=== PATIENT | male | born 1985 | race Caucasian/White ===

== ENCOUNTER 2022-11-02 16:35 | Inpatient (IN) | payer OTHER ==
[~2022-11-02] VITALS: Ht 177.8 cm; Wt 92.0 kg
[2022-11-02] MEDS ORDERED: HYDROmorphone 2 MG TAB PO PRN (17:50)
[2022-11-02] MEDS ORDERED: ACETAMINOPHEN TAB 650MG DOSE (2X325MG) PO PRN (17:50)
[2022-11-02] MEDS ORDERED: diphenhydrAMINE 50MG/ML VIAL IV PRN (17:50)
[2022-11-02] MEDS ORDERED: zolPIDEM TARTRATE 5 MG TAB PO PRN (17:50)
[2022-11-02] MEDS ORDERED: ONDANSETRON 4MG 2ML VIAL IV PRN ×2 (17:50→20:30)
[2022-11-02] MEDS ORDERED: ceFAZolin SOD 2 GM in IV 1 EA IV ONE (17:55)
[2022-11-02 18:22] VITALS: BP 122/82
[2022-11-02] MEDS ORDERED: propofoL 200 MG/20 ML VIAL As Ordered ONE (18:42)
[2022-11-02] MEDS ORDERED: LIDOCAINE 2% 100MG/5ML SDV (FOR ANES.) As Ordered ONE (18:42)
[2022-11-02] MEDS ORDERED: MIDAZOLAM INJ 2MG/2ML VIAL (J2250 PER 1MG) As Ordered ONE (18:43)
[2022-11-02] MEDS ORDERED: fentaNYL 100 MCG/2 ML INJECTION As Ordered ONE (18:43)
[2022-11-02] MEDS ORDERED: ceFAZolin 1GM VIAL As Ordered ONE (18:52)
[2022-11-02] MEDS ORDERED: BUPIVACAINE HCL 0.5% 30ML VIAL As Ordered ONE (18:53)
[2022-11-02] MEDS ORDERED: ceFAZolin 2 GM/D5W 50 ML IV BAG As Ordered ONE (19:13)
[2022-11-02] MEDS ORDERED: ONDANSETRON 4MG 2ML VIAL As Ordered ONE (19:16)
[2022-11-02] MEDS ORDERED: ACETAMINOPHEN 1000MG 100ML IV BAG As Ordered ONE (19:29)
[2022-11-02] MEDS ORDERED: oxyCODONE 5MG TAB PO PRN (20:30)
[2022-11-02] MEDS ORDERED: LR 1,000 ML IV SCH (20:30)
[2022-11-02] MEDS ORDERED: KETOROLAC 30 MG/ML 1ML VIAL As Ordered ONE (20:41)
[2022-11-02] MEDS: KETOROLAC 30 MG/ML 1ML VIAL IV SCH (20:48)
[2022-11-02] MEDS: fentaNYL 100 MCG/2 ML INJECTION IV PRN ×4 (20:56→21:22)
[2022-11-02] MEDS: MORPHINE 4 MG/ML 1ML VIAL IV PRN (21:19)
[2022-11-02 21:58] VITALS: BP 128/81
[2022-11-02] MEDS: PIPERACILLIN/TAZOBACTAM SOD 4.5 GM in D5W MINI-BAG PLUS 50 ML IV SCH (22:10)
[2022-11-02 22:31] VITALS: BP 143/85
[2022-11-02 23:00] VITALS: BP 141/84
[2022-11-02] MEDS ORDERED: VANCOMYCIN HCL 1,000 MG, VIAL MATE ADAPTER 1 EACH in NS 250 ML IV ONE (23:00)
[2022-11-02 23:54] VITALS: BP 139/82
[2022-11-03] VITALS (7 sets, daily range): BP systolic 99–129; BP diastolic 63–73
[2022-11-03] MEDS ORDERED: VANCOMYCIN HCL 1,000 MG, VIAL MATE ADAPTER 1 EACH in NS 250 ML IV ONE ×3
[2022-11-03] MEDS: MORPHINE 4 MG/ML 1ML VIAL IV PRN ×2 (01:02→06:22)
[2022-11-03] MEDS: KETOROLAC 30 MG/ML 1ML VIAL IV SCH ×3 (02:13→15:00)
[2022-11-03] MEDS: PIPERACILLIN/TAZOBACTAM SOD 4.5 GM in D5W MINI-BAG PLUS 50 ML IV SCH ×4 (03:22→23:24)
[2022-11-03] MEDS: oxyCODONE 5MG TAB PO PRN ×3 (03:23→18:47)
[2022-11-03 06:32] LABS: BASO % 0.2 % (0.0-1.0); HEMATOCRIT 41.6 % (42.0-52.0); HEMOGLOBIN 14.1 g/dl (13.5-17.5); LYMPH # 0.5 10^3/uL (1.5-5.0); LYMPH % 4.5 % (24.0-44.0); MEAN CORPUSCULAR HEMOGLOBIN 31.1 pg (27.0-33.0); MEAN CORPUSCULAR HGB CONC 33.9 g/dl (32.0-36.5); MEAN CORPUSCULAR VOLUME 91.8 fl (80.0-96.0); MONO # 0.6 10^3/uL (0.0-0.8); MONO % 5.4 % (2.0-8.0); NEUTROPHILS # 10.5 10^3/uL (1.5-8.5); NEUTROPHILS % 89.3 % (36.0-66.0); PLATELET COUNT, AUTOMATED 210 10^3/uL (150-450); RED BLOOD COUNT 4.53 10^6/uL (4.30-6.10); WHITE BLOOD COUNT 11.8 10^3/uL (4.0-10.0)
[2022-11-03 07:03] LABS: BLOOD UREA NITROGEN 11 MG/DL (9-23); CALCIUM LEVEL 8.9 MG/DL (8.5-10.1); CARBON DIOXIDE LEVEL 27 MMOL/L (20-31); CHLORIDE LEVEL 103 MMOL/L (98-107); CREATININE FOR GFR 0.97 MG/DL (0.70-1.30); GLOMERULAR FILTRATION RATE > 60.0 (>60); GLUCOSE, FASTING 169 MG/DL (60-100); POTASSIUM SERUM 4.7 MMOL/L (3.5-5.1); SODIUM LEVEL 137 MMOL/L (136-145)
[2022-11-03] MEDS: VANCOMYCIN HCL 750 MG, VIAL MATE ADAPTER 1 EACH in D5W 250 ML IV SCH ×4 (08:11→21:55)
[2022-11-03] MEDS ORDERED: ADDE30CA3 PO (09:53)
[2022-11-03] MEDS ORDERED: HOME MED LIST COMPLETE! XX SCH (09:55)
[2022-11-03] MEDS ORDERED: IBUPROFEN 600MG TAB PO PRN (21:00)
[2022-11-04] MEDS: oxyCODONE 5MG TAB PO PRN ×3 (00:35→14:14)
[2022-11-04 02:00] VITALS: BP 122/64
[2022-11-04] MEDS: PIPERACILLIN/TAZOBACTAM SOD 4.5 GM in D5W MINI-BAG PLUS 50 ML IV SCH (03:47)
[2022-11-04 05:33] VITALS: BP 122/64
[2022-11-04 07:23] LABS: HEMATOCRIT 38.3 % (42.0-52.0); HEMOGLOBIN 12.9 g/dl (13.5-17.5); MEAN CORPUSCULAR HEMOGLOBIN 31.6 pg (27.0-33.0); MEAN CORPUSCULAR HGB CONC 33.7 g/dl (32.0-36.5); MEAN CORPUSCULAR VOLUME 93.9 fl (80.0-96.0); PLATELET COUNT, AUTOMATED 198 10^3/uL (150-450); RED BLOOD COUNT 4.08 10^6/uL (4.30-6.10); WHITE BLOOD COUNT 8.4 10^3/uL (4.0-10.0)
[2022-11-04 07:55] LABS: BLOOD UREA NITROGEN 12 MG/DL (9-23); CALCIUM LEVEL 8.4 MG/DL (8.5-10.1); CARBON DIOXIDE LEVEL 26 MMOL/L (20-31); CHLORIDE LEVEL 107 MMOL/L (98-107); CREATININE FOR GFR 1.06 MG/DL (0.70-1.30); GLOMERULAR FILTRATION RATE > 60.0 (>60); GLUCOSE, FASTING 109 MG/DL (60-100); POTASSIUM SERUM 4.6 MMOL/L (3.5-5.1); SODIUM LEVEL 141 MMOL/L (136-145)
[2022-11-04 10:00] VITALS: BP 139/81
[2022-11-04] MEDS ORDERED: ceFAZolin SOD 1 GM in D5W MINI-BAG PLUS 50 ML IV SCH (10:00)
[2022-11-04] MEDS ORDERED: CEPH500C PO (13:52)
[2022-11-04] MEDS ORDERED: PERC5TAB12 PO (13:52)
== END 2022-11-04 14:45 | disposition home or self-care (01) | DRG 603 ==
LOC: M SDC 16:35 → M MS5PR 18:06
PROVIDERS: ADMIT Orthopaedic Surgery Hand Surgery; ATTEND Orthopaedic Surgery Hand Surgery
PROC: 0H9FXZZ Drainage of Right Hand Skin, External Approach (ICD-10-PCS; principal; 2022-11-02 18:30)
DX: L08.9 Local infection of the skin and subcutaneous tissue, unspecified (principal); S61.212D Laceration without foreign body of right middle finger without damage to nail, subsequent encounter; M65.841 Other synovitis and tenosynovitis, right hand; Z79.899 Other long term (current) drug therapy; Z20.822 Contact with and (suspected) exposure to COVID-19

== ENCOUNTER → 2022-11-08 | Outpatient (CLI) | payer OTHER ==
[~2022-11-08] MED LIST: ADDE30CA3 PO; CEPH500C PO; PERC5TAB12 PO
[2022-11-08 13:29] LABS: BASO % 0.6 % (0.0-1.0); EOS # 0.2 10^3/uL (0.0-0.5); EOS % 3.4 % (0.0-3.0); HEMATOCRIT 49.5 % (42.0-52.0); HEMOGLOBIN 16.1 g/dl (13.5-17.5); LYMPH % 31.8 % (24.0-44.0); MEAN CORPUSCULAR HEMOGLOBIN 30.1 pg (27.0-33.0); MEAN CORPUSCULAR HGB CONC 32.5 g/dl (32.0-36.5); MEAN CORPUSCULAR VOLUME 92.7 fl (80.0-96.0); MONO # 0.6 10^3/uL (0.0-0.8); MONO % 9.5 % (2.0-8.0); NEUTROPHILS # 3.4 10^3/uL (1.5-8.5); NEUTROPHILS % 54.2 % (36.0-66.0); PLATELET COUNT, AUTOMATED 330 10^3/uL (150-450); RED BLOOD COUNT 5.34 10^6/uL (4.30-6.10); WHITE BLOOD COUNT 6.2 10^3/uL (4.0-10.0)
[2022-11-08 13:52] LABS: ERYTHROCYTE SEDIMENTATION RATE 15 mm/hr (0-15)
[2022-11-08 14:02] LABS: BLOOD UREA NITROGEN 11 MG/DL (9-23); CALCIUM LEVEL 9.3 MG/DL (8.5-10.1); CARBON DIOXIDE LEVEL 32 MMOL/L (20-31); CHLORIDE LEVEL 102 MMOL/L (98-107); CREATININE FOR GFR 0.99 MG/DL (0.70-1.30); GLOMERULAR FILTRATION RATE > 60.0 (>60); GLUCOSE, FASTING 80 MG/DL (60-100); POTASSIUM SERUM 5.7 MMOL/L (3.5-5.1); SODIUM LEVEL 138 MMOL/L (136-145)
== END ==
LOC: M PLALAB 11:57
PROVIDERS: ATTEND Physician Assistant
DX: L02.511 Cutaneous abscess of right hand (principal)

== ENCOUNTER 2022-11-09 08:08 | Day surgery (SDC) | payer OTHER ==
[~2022-11-09] VITALS: Ht 177.8 cm; Wt 92.9 kg
[~2022-11-09 08:08] MED LIST changes: +ceFAZolin SOD 2 GM in IV 1 EA IV ONE
[2022-11-09] MEDS ORDERED: LIDOCAINE 2% 100MG/5ML SDV (FOR ANES.) As Ordered ONE ×2 (08:14→10:06)
[2022-11-09] MEDS ORDERED: LR 1,000 ML IV SCH ×2 (08:15→13:40)
[2022-11-09] MEDS ORDERED: propofoL 200 MG/20 ML VIAL As Ordered ONE (10:00)
[2022-11-09] MEDS ORDERED: ONDANSETRON 4MG 2ML VIAL As Ordered ONE (10:01)
[2022-11-09] MEDS ORDERED: fentaNYL 250 MCG/5 ML INJECTION As Ordered ONE (10:01)
[2022-11-09] MEDS ORDERED: MIDAZOLAM INJ 2MG/2ML VIAL (J2250 PER 1MG) As Ordered ONE (10:01)
[2022-11-09] MEDS ORDERED: BACITRACIN OINTMENT 30GM TUBE As Ordered ONE (11:28)
[2022-11-09] MEDS ORDERED: BUPIVACAINE HCL 0.25% 30ML VIAL As Ordered ONE (11:28)
[2022-11-09] MEDS ORDERED: METOCLOPRAMIDE INJ 10MG/2ML VIAL IV PRN (13:40)
[2022-11-09] MEDS ORDERED: MORPHINE 2 MG/ML 1ML VIAL IV PRN (13:40)
[2022-11-09] MEDS ORDERED: ONDANSETRON 4MG 2ML VIAL IV PRN (13:40)
[2022-11-09] MEDS: fentaNYL 100 MCG/2 ML INJECTION IV PRN ×3 (14:08→14:27)
[2022-11-09] MEDS: oxyCODONE 5MG TAB PO PRN ×2 (14:08→14:35)
[2022-11-09 14:50] VITALS: BP 143/84
[2022-11-09] MEDS ORDERED: PERC5TAB12 PO (16:10)
== END 2022-11-09 15:05 | disposition home or self-care (01) ==
LOC: M SDC 08:08
PROVIDERS: ATTEND Orthopaedic Surgery Hand Surgery
DX: M65.841 Other synovitis and tenosynovitis, right hand (principal); L02.511 Cutaneous abscess of right hand; F17.210 Nicotine dependence, cigarettes, uncomplicated; Z79.899 Other long term (current) drug therapy; F90.9 Attention-deficit hyperactivity disorder, unspecified type
CPT/HCPCS: 26356; 36415; 84132; 87428; J0690; J1100; J2250; J2405; J3010

== ENCOUNTER 2023-03-08 07:52 | Day surgery (SDC) | payer OTHER ==
[~2023-03-08] VITALS: Ht 177.8 cm; Wt 90.7 kg
[~2023-03-08 07:52] MED LIST changes: -ceFAZolin SOD 2 GM in IV 1 EA IV ONE
[2023-03-08] MEDS ORDERED: LR 1,000 ML IV SCH (09:00)
[2023-03-08] MEDS ORDERED: fentaNYL 100 MCG/2 ML INJECTION As Ordered ONE (09:11)
[2023-03-08] MEDS ORDERED: propofoL 200 MG/20 ML VIAL As Ordered ONE ×2 (09:11→09:13)
[2023-03-08] MEDS ORDERED: MIDAZOLAM INJ 2MG/2ML VIAL As Ordered ONE (09:11)
[2023-03-08] MEDS ORDERED: LIDOCAINE 2% 100MG/5ML SDV (FOR ANES.) As Ordered ONE (09:11)
[2023-03-08] MEDS ORDERED: ONDANSETRON 4MG 2ML VIAL As Ordered ONE (09:46)
[2023-03-08] MEDS ORDERED: KETOROLAC 60MG 2ML VIAL As Ordered ONE (09:50)
[2023-03-08] MEDS ORDERED: ceFAZolin 2 GM/D5W 50 ML IV BAG As Ordered ONE (10:07)
[2023-03-08] MEDS ORDERED: BUPIVACAINE HCL 0.25% 30ML VIAL As Ordered ONE (10:12)
[2023-03-08] MEDS ORDERED: ACETAMINOPHEN 1000MG 100ML IV BAG As Ordered ONE (10:20)
[2023-03-08] MEDS ORDERED: ceFAZolin SOD 2 GM in IV 1 EA IV ONE (10:20)
[2023-03-08] MEDS ORDERED: GLYCOPYRROLATE INJ 0.2 MG/ML 2 ML VIAL As Ordered ONE (10:58)
[2023-03-08] MEDS ORDERED: HYDROmorphone HCL 2MG/ML 1ML VIAL As Ordered ONE (11:58)
[2023-03-08] MEDS ORDERED: BACITRACIN OINTMENT 30GM TUBE As Ordered ONE (12:09)
[2023-03-08] MEDS ORDERED: oxyCODONE 5MG TAB PO PRN (12:35)
[2023-03-08] MEDS ORDERED: fentaNYL 100 MCG/2 ML INJECTION IV PRN (12:35)
[2023-03-08] MEDS ORDERED: ONDANSETRON 4MG 2ML VIAL IV PRN (12:35)
[2023-03-08] MEDS ORDERED: MORPHINE 2 MG/ML 1ML VIAL IV PRN (12:35)
[2023-03-08] MEDS ORDERED: PERC5TAB12 PO (12:58)
[2023-03-08 14:00] VITALS: BP 142/70
== END 2023-03-08 14:14 | disposition home or self-care (01) ==
LOC: M SDC 07:52
PROVIDERS: ATTEND Orthopaedic Surgery Hand Surgery
DX: M25.641 Stiffness of right hand, not elsewhere classified (principal); F17.200 Nicotine dependence, unspecified, uncomplicated; K21.9 Gastro-esophageal reflux disease without esophagitis; Z79.899 Other long term (current) drug therapy
CPT/HCPCS: 26442; J0131; J0690; J1100; J1170; J1885; J2250; J2405; J3010; S0020

== ENCOUNTER 2023-03-25 17:36 | Emergency (ER) | payer OTHER ==
[~2023-03-25] VITALS: Ht 177.8 cm; Wt 87.5 kg
[2023-03-25 17:37] VITALS: BP 158/95
[2023-03-25] MEDS ORDERED: CEFA500C2 (17:44)
[2023-03-25] MEDS ORDERED: cefTRIAXone SOD 1 GM in D5W MINI-BAG PLUS 50 ML IV ONE (18:55)
[2023-03-25 19:30] LABS: BASO % 0.6 % (0.0-1.0); EOS # 0.1 10^3/uL (0.0-0.5); HEMATOCRIT 42.9 % (42.0-52.0); HEMOGLOBIN 15.3 g/dl (13.5-17.5); LYMPH # 1.7 10^3/uL (1.5-5.0); LYMPH % 24.9 % (24.0-44.0); MEAN CORPUSCULAR HEMOGLOBIN 31.4 pg (27.0-33.0); MEAN CORPUSCULAR HGB CONC 35.7 g/dl (32.0-36.5); MEAN CORPUSCULAR VOLUME 88.1 fl (80.0-96.0); MONO # 0.5 10^3/uL (0.0-0.8); MONO % 6.7 % (2.0-8.0); NEUTROPHILS # 4.7 10^3/uL (1.5-8.5); NEUTROPHILS % 66.7 % (36.0-66.0); PLATELET COUNT, AUTOMATED 247 10^3/uL (150-450); RED BLOOD COUNT 4.87 10^6/uL (4.30-6.10)
[2023-03-25] MEDS ORDERED: CEPH500C PO (19:59)
[2023-03-25 20:08] LABS: ERYTHROCYTE SEDIMENTATION RATE 5 mm/hr (0-15)
== END 2023-03-25 20:12 | disposition home or self-care (01) ==
LOC: M ED 17:36
DX: T81.40XA Infection following a procedure, unspecified, initial encounter (principal); T81.31XA Disruption of external operation (surgical) wound, not elsewhere classified, initial encounter; S61.401A Unspecified open wound of right hand, initial encounter; F17.200 Nicotine dependence, unspecified, uncomplicated; Z79.2 Long term (current) use of antibiotics; Z79.899 Other long term (current) drug therapy
CPT/HCPCS: 85025; 85652; 86140; 96374; 99283; J0696

== ENCOUNTER 2023-07-19 06:56 | Day surgery (SDC) | payer OTHER ==
[~2023-07-19] VITALS: Ht 177.8 cm; Wt 90.3 kg
[~2023-07-19 06:56] MED LIST changes: +CEFA500C2 PO; +VITMTA PO; +ceFAZolin SOD 2 GM in IV 1 EA IV ONE
[2023-07-19] MEDS ORDERED: BACITRACIN OINTMENT 30GM TUBE As Ordered ONE (07:08)
[2023-07-19] MEDS ORDERED: LR 1,000 ML IV SCH ×2 (07:20→11:55)
[2023-07-19] MEDS ORDERED: fentaNYL 100 MCG/2 ML INJECTION As Ordered ONE (08:04)
[2023-07-19] MEDS ORDERED: LIDOCAINE 2% 100MG/5ML SDV (FOR ANES.) As Ordered ONE (08:04)
[2023-07-19] MEDS ORDERED: ONDANSETRON 4MG 2ML VIAL As Ordered ONE (08:04)
[2023-07-19] MEDS ORDERED: propofoL 200 MG/20 ML VIAL As Ordered ONE (08:04)
[2023-07-19] MEDS ORDERED: MIDAZOLAM INJ 2MG/2ML VIAL As Ordered ONE (08:04)
[2023-07-19] MEDS ORDERED: ACETAMINOPHEN 1000MG 100ML IV BAG As Ordered ONE (08:06)
[2023-07-19] MEDS ORDERED: dexmedeTOMIDine (4MCG/ML)200MCG/50ML BTL (PRECEDEX) As Ordered ONE (08:22)
[2023-07-19] MEDS ORDERED: KETOROLAC 60MG 2ML VIAL As Ordered ONE (08:27)
[2023-07-19] MEDS ORDERED: HYDROmorphone HCL 2MG/ML 1ML VIAL As Ordered ONE (09:53)
[2023-07-19] MEDS ORDERED: oxyCODONE 5MG TAB PO PRN (11:55)
[2023-07-19] MEDS ORDERED: ONDANSETRON 4MG 2ML VIAL IV PRN (11:55)
[2023-07-19] MEDS ORDERED: fentaNYL 100 MCG/2 ML INJECTION IV PRN (11:55)
[2023-07-19] MEDS ORDERED: METOCLOPRAMIDE INJ 10MG/2ML VIAL IV PRN (11:55)
[2023-07-19] MEDS ORDERED: HYDROMORPHONE HCL 0.5 MG/ 0.5 ML SYRINGE IV PRN (11:55)
[2023-07-19] MEDS ORDERED: CEPH500T PO (12:07)
[2023-07-19] MEDS ORDERED: PERC5TAB12 PO (12:07)
[2023-07-19 13:00] VITALS: BP 119/74; TEMP 97.5; O2SAT 99
== END 2023-07-19 13:08 | disposition home or self-care (01) ==
LOC: M SDC 06:56
PROVIDERS: ATTEND Orthopaedic Surgery Hand Surgery
DX: S66.102A Unspecified injury of flexor muscle, fascia and tendon of right middle finger at wrist and hand level, initial encounter (principal); F90.9 Attention-deficit hyperactivity disorder, unspecified type; K21.9 Gastro-esophageal reflux disease without esophagitis; F17.210 Nicotine dependence, cigarettes, uncomplicated; Z79.899 Other long term (current) drug therapy; X58.XXXA Exposure to other specified factors, initial encounter; Y92.89 Other specified places as the place of occurrence of the external cause; Y93.9 Activity, unspecified; Y99.9 Unspecified external cause status
CPT/HCPCS: 26356; 26390; 26500; C1776; J0131; J0665; J0690; J1100; J1170; J1885; J2250; J2405; J3010

== ENCOUNTER → 2023-12-21 | Outpatient (CLI) | payer OTHER ==
[~2023-12-21] MED LIST changes: +CEPH500T PO; -ceFAZolin SOD 2 GM in IV 1 EA IV ONE
== END ==
LOC: M SOG 07:56
PROVIDERS: ATTEND Physician Assistant
DX: S66.112A Strain of flexor muscle, fascia and tendon of right middle finger at wrist and hand level, initial encounter (principal)

== ENCOUNTER → 2024-02-23 | Outpatient (CLI) | payer OTHER ==
[~2024-02-23] MED LIST changes: +THERTAB52 PO; +TUME1CAP PO
== END ==
LOC: M SOG 13:36
PROVIDERS: ATTEND Physician Assistant
DX: S66.10 Unspecified injury of flexor muscle, fascia and tendon of other and unspecified finger at wrist and hand level (principal)